=== PATIENT | female | born 1955 | race Two or more races ===

== ENCOUNTER 2017-04-01 01:04 | Emergency (ER) | payer MEDICAID ==
[~2017-04-01] VITALS: Ht 167.6 cm; Wt 74.8 kg
--- NOTE | 2017-04-01 01:32 | NUR ---
PT BIB RA 81 WITH A C/O ELEVATED BP AND ANXIETY. PT TOOK TWO 0.1MG CLONIDINE PO 2 HRS AGO. PT WAS HYPERTENSIVE IN THE FIELD. PT AMBULATED TO THE [facility] AND WAS PLACED ON THE MONITOR AND CONTINUOUS PULSE OX. VSS.
[2017-04-01 01:59] VITALS: BP 130/80
== END 2017-04-01 01:50 | disposition home or self-care (01) ==
LOC: ER 01:07
DX: F41.9 Anxiety disorder, unspecified (principal); I10 Essential (primary) hypertension
CPT/HCPCS: A4606; Z7610

== ENCOUNTER 2017-09-21 19:55 | Emergency (ER) | payer MEDICAID ==
[~2017-09-21] VITALS: Ht 165.1 cm; Wt 72.6 kg
[2017-09-21 20:03] VITALS: BP 179/99
--- NOTE | 2017-09-21 20:44 | NUR ---
PT BACK FROM CT
== END 2017-09-21 21:42 | disposition home or self-care (01) ==
LOC: ER 19:56
DX: R51 Headache (principal); I10 Essential (primary) hypertension; F41.9 Anxiety disorder, unspecified; Z60.2 Problems related to living alone
CPT/HCPCS: 70450-TC; A4606; Z7610

== ENCOUNTER 2017-12-21 10:50 | Emergency (ER) | payer MEDICAID ==
[~2017-12-21] VITALS: Ht 167.6 cm; Wt 73.0 kg
[2017-12-21 11:09] VITALS: BP 146/83
--- NOTE | 2017-12-21 12:13 | NUR ---
Patient discharged to home in stable condition. Written and verbal after care instructions given. Patient verbalizes understanding of instruction. VSS
== END 2017-12-21 12:12 | disposition home or self-care (01) ==
LOC: ER 10:53
DX: S52.592A Other fractures of lower end of left radius, initial encounter for closed fracture (principal); I10 Essential (primary) hypertension; F41.9 Anxiety disorder, unspecified; F17.200 Nicotine dependence, unspecified, uncomplicated; W18.30XA Fall on same level, unspecified, initial encounter; Y93.01 Activity, walking, marching and hiking; Y92.480 Sidewalk as the place of occurrence of the external cause; Y99.8 Other external cause status
CPT/HCPCS: 29125; 73110; 99284; A4606; Z7610

== ENCOUNTER 2018-09-04 14:23 | Emergency (ER) | payer MEDICAID ==
[~2018-09-04] VITALS: Ht 170.2 cm; Wt 77.6 kg
--- NOTE | 2018-09-04 14:28 | NUR ---
BIBRA FROM HOME FOR PALPITATIONS GIVEN ADENOSINE VISUAL MANAGER, CONVERTED TO SINUS TACH, PT AAOX4, PT ON MONITOR, VSS, NAD NOTED, PENDING MD HAWKINS
[2018-09-04] MEDS ORDERED: METOPROLOL TARTRATE INJ 5 MG/5 ML AMPUL ONE (14:44)
[2018-09-04 14:45] LABS: BASOPHILS # (AUTO) 0.1 /CMM (0.0-0.2); HEMATOCRIT 37 % (33-45); HEMOGLOBIN 12.2 g/dL (11.5-14.8); LYMPHOCYTES # (AUTO) 2.1 /CMM (0.8-4.8); LYMPHOCYTES % (AUTO) 36.3 % (20.0-44.0); MEAN CORPUSCULAR HGB CONC 33 g/dl (31.0-36.0); MEAN CORPUSCULAR VOLUME 91 fL (82-100); MONOCYTES # (AUTO) 0.4 /CMM (0.1-1.30); MONOCYTES % (AUTO) 6.5 % (2.0-12.0); NEUTROPHILS # (AUTO) 3.2 /CMM (1.8-8.9); NEUTROPHILS % (AUTO) 55.2 % (43.0-81.0); PLATELET COUNT (AUTO) 238 /CMM (150-450); RED BLOOD CELL COUNT(AUTO) 4.04 MIL/uL (4.0-5.2); WHITE BLOOD COUNT (AUTO) 5.8 K/uL (4.3-11.0)
[2018-09-04 14:53] LABS: CALCIUM, SERUM 7.7 mg/dL (8.5-10.1); CARBON DIOXIDE 26 mmol/L (21-32); CHLORIDE 111 mmol/L (98-107); CREATININE 0.6 mg/dL (0.6-1.3); GLUCOSE 102 mg/dL (74-106); POTASSIUM 2.8 mmol/L (3.5-5.1); SODIUM SERUM 145 mmol/L (136-145); UREA NITROGEN, BLOOD 23 mg/dL (7-18)
[2018-09-04] MEDS ORDERED: METOPROLOL TARTRATE INJ 5 MG/5 ML AMPUL IVP ONE (15:00)
[2018-09-04] MEDS ORDERED: HYDR-4076 PO (15:14)
[2018-09-04] MEDS ORDERED: MEMA5TAB15 PO (15:14)
[2018-09-04] MEDS ORDERED: AMLO10TA7 PO (15:14)
[2018-09-04] MEDS ORDERED: ATOR20TA PO (15:14)
[2018-09-04] MEDS ORDERED: ERGO500014 PO (15:14)
[2018-09-04] MEDS ORDERED: SPIR25TA6 PO (15:14)
[2018-09-04] MEDS ORDERED: LOSA1TAB39 PO (15:14)
[2018-09-04] MEDS ORDERED: SERT50TA PO (15:14)
[2018-09-04] MEDS ORDERED: ASPI-605 PO (15:14)
[2018-09-04] MEDS ORDERED: MELO-107 PO (15:14)
[2018-09-04] MEDS ORDERED: CLON0.2T PO (15:14)
[2018-09-04] MEDS ORDERED: CARV12.52 PO (15:14)
[2018-09-04] MEDS ORDERED: CALC500T52 PO (15:14)
[2018-09-04] MEDS ORDERED: FENO145T35 PO (15:14)
[2018-09-04] MEDS ORDERED: SUMA100T16 PO (15:14)
[2018-09-04] MEDS ORDERED: CLOB15CR4 TP (15:14)
[2018-09-04] MEDS ORDERED: MECL-102 PO (15:14)
[2018-09-04] MEDS ORDERED: GABA-534 PO (15:14)
[2018-09-04 16:57] VITALS: BP 118/65
[2018-09-04] MEDS ORDERED: POTASSIUM CHLORIDE 20 MEQ TAB.PRT.SR PO ONE ×2 (17:00→17:03)
--- NOTE | 2018-09-04 17:44 | NUR ---
Patient discharged to home in stable condition. Written and verbal after care instructions given. Patient verbalizes understanding of instruction. IV removed. Catheter intact and site benign. Pressure and 4x4 applied to site. No bleeding noted.
== END 2018-09-04 18:04 | disposition home or self-care (01) ==
LOC: ER 14:28
DX: I47.1 Supraventricular tachycardia (principal); I10 Essential (primary) hypertension; F41.9 Anxiety disorder, unspecified; F17.200 Nicotine dependence, unspecified, uncomplicated; Z79.82 Long term (current) use of aspirin
CPT/HCPCS: 36415; 71045; 80048; 84484; 85025; 93005 ×2; 96374; 99284; J3490

== ENCOUNTER 2019-09-16 14:47 | Inpatient (IN) | payer MEDICAID ==
[~2019-09-16] VITALS: Ht 162.6 cm; Wt 76.2 kg
[~2019-09-16 14:47] MED LIST: AMLO10TA7 PO; ASPI-605 PO; ATOR20TA PO; CALC500T52 PO; CARV12.52 PO; CLOB15CR4 TP; CLON0.2T PO; ERGO500014 PO; FENO145T21 PO; GABA-534 PO; HYDR-4076 PO; LOSA1TAB39 PO; MECL-159 PO; MELO-107 PO; MEMA5TAB42 PO; SERT50TA PO; SPIR25TA6 PO; SUMA100T16 PO
--- NOTE | 2019-09-16 14:47 | NUR ---
PT BIBRA88 FRM HOME, PER EMS REPORT RAPID HEART RATE. VALSALVA MANUJAILYN, PT IS AAOX4 URUGUAYAN SPEAKING ONLY, NOT IN RESPIRATORY DISTRESS, HOOKED TO MACHINE MAINTENANCE, KEPT RESTED AND COMFORTABLE, WILL CONTINUE TO MONITOR.
--- NOTE | 2019-09-16 14:50 | NUR ---
SEEN AND EXAMINED BY .
--- NOTE | 2019-09-16 14:55 | NUR ---
BLOOD DRAWN AND SENT TO LAB.
[2019-09-16] MEDS ORDERED: METOPROLOL TARTRATE 25 MG TABLET PO ONE (15:00)
[2019-09-16] MEDS ORDERED: IV NS 0.9% 1,000 ML BAG IV ONE (15:00)
[2019-09-16] MEDS ORDERED: METOPROLOL TARTRATE 50 MG TABLET ONE (15:02)
[2019-09-16 15:05] LABS: BASOPHILS # (AUTO) 0.1 /CMM (0.0-0.2); BASOPHILS % (AUTO) 0.9 % (0.0-2.0); EOSINOPHILS % (AUTO) 0.7 % (0.0-6.0); HEMATOCRIT 40 % (33-45); HEMOGLOBIN 13.2 g/dL (11.5-14.8); LYMPHOCYTES # (AUTO) 2.5 /CMM (0.8-4.8); LYMPHOCYTES % (AUTO) 44.2 % (20.0-44.0); MEAN CORPUSCULAR HGB CONC 33 g/dl (31.0-36.0); MEAN CORPUSCULAR VOLUME 91 fL (82-100); MONOCYTES # (AUTO) 0.4 /CMM (0.1-1.30); NEUTROPHILS # (AUTO) 2.6 /CMM (1.8-8.9); NEUTROPHILS % (AUTO) 47.2 % (43.0-81.0); PLATELET COUNT (AUTO) 234 /CMM (150-450); RED BLOOD CELL COUNT(AUTO) 4.37 MIL/uL (4.0-5.2); WHITE BLOOD COUNT (AUTO) 5.6 K/uL (4.3-11.0)
--- NOTE | 2019-09-16 15:18 | NUR ---
BULK TANK DRIVER AT BEDSIDE FOR XRAY.
[2019-09-16 15:23] LABS: CALCIUM, SERUM 8.8 mg/dL (8.5-10.1); POTASSIUM 3.9 mmol/L (3.5-5.1)
[2019-09-16] MEDS ORDERED: ENOXAPARIN SODIUM 80 MG/0.8 ML DISP.SYRIN SQ ONE ×2 (18:48→19:00)
--- NOTE | 2019-09-16 19:16 | NUR ---
REPORT GIVEN TO VIBHA ARENAS FOR HUAN.
--- NOTE | 2019-09-16 20:21 | NUR ---
SPOKE FELISHA EDMONDSON DIE TRIPPER. PT CAPITATED TO [facility]. PENDING MD TO MD/POSSIBLE TRANSFER
--- NOTE | 2019-09-16 21:10 | NUR ---
DR. WILLAMS ON THE PHONE WITH FELISHA WATSON
[2019-09-16] MEDS ORDERED: ZOLPIDEM TARTRATE 5 MG TABLET PO PRN (22:00)
[2019-09-16] MEDS ORDERED: ACETAMINOPHEN 325 MG TABLET PO PRN (22:00)
[2019-09-16] MEDS ORDERED: CLONIDINE HCL 0.1 MG TABLET PO PRN (22:00)
[2019-09-16] MEDS ORDERED: METOPROLOL SUCCINATE 50 MG TAB.SR.24H PO SCH (22:00)
[2019-09-16] MEDS ORDERED: ATORVASTATIN 10 MG TABLET PO SCH (22:00)
--- NOTE | 2019-09-16 22:10 | NUR ---
report given to Miguelina Pratt
--- NOTE | 2019-09-16 22:30 | NUR ---
DIAGRAMMER AND SEAMER NOTES PATIENT ARRIVED VIA GURNEY AT 2230. PATIENT ALERT AND ORIENTED X 4, MAINLY ZIMBABWEAN SPEAKING. PATIENT ON ROOM AIR, WITH NO SIGNS OF RESPIRATORY DISTRESS AT THIS TIME, WITH EVEN NON-LABORED BREATHING. PATIENT ON HOME HELP AIDE, 60'S. PATIENT SKIN INTACT, WARM TO TOUCH AND DRY. PATIENT IV ACCESS INTACT AND PATENT ON LEFT AC, 18 GAUGE. PROVIDED COMFORT MEASURES TO PATIENT, STATES AND PRESENTS NO SIGNS OF PAIN OR DISCOMFORT AT THIS TIME. SAFETY PRECAUTIONS IN PLACE WITH BED LOCKED, BILATERAL SIDE RAILS UP, AND CALL LIGHT WITHIN EASY REACH OF THE PATIENT. WILL CONTINUE TO MONITOR PATIENT.
--- NOTE | 2019-09-16 22:36 | NUR ---
PT transfered per acls protocol
[2019-09-17] VITALS: BP 139/74
[2019-09-17 04:00] VITALS: BP 124/78
--- NOTE | 2019-09-17 06:38 | NUR ---
ENVIRONMENTAL CONSULTANT NOTES PATIENT IN BED RESTING. ALERT AND ORIENTED X 4. PATIENT ON ROOM AIR WITH NO SIGNS OF RESPIRATORY DISTRESS AT THIS TIME, WITH EVEN NON-LABORED BREATHING. ON MANAGER OF RECRUITING, SINUS BRADYCARDIA 53. IV ACCESS REMAINS INTACT AND PATENT. PATIENT DENIES ANY PAIN OR DISCOMFORT AT THIS TIME. SKIN KEPT CLEAN AND DRY. MET ALL OF PATIENT'S NEEDS. SAFETY PRECAUTIONS IN PLACE WITH BED LOCKED, BED IN THE LOWEST POSITION, BILATERAL SIDE RAILS UP, AND CALL LIGHT WITHIN EASY REACH OF PATIENT. WILL ENDORSE PLAN OF CARE TO UPCOMING DAYSHIFT NURSE.
[2019-09-17 06:47] LABS: ALBUMIN 3.4 g/dL (3.4-5.0); BILIRUBIN,TOTAL 0.5 mg/dL (0.2-1.0); CALCIUM, SERUM 8.7 mg/dL (8.5-10.1); CREATININE 0.7 mg/dL (0.6-1.3); POTASSIUM 3.7 mmol/L (3.5-5.1); TOTAL PROTEIN, SERUM 6.5 g/dL (6.4-8.2)
[2019-09-17 06:58] LABS: THYROID STIMULATING HORMONE 3.018 uIU/mL (0.358-3.74)
--- NOTE | 2019-09-17 07:00 | NUR ---
SUPERVISOR MAIL CARRIERS OPENING NOTES RECEIVED PT IN BED RESTING AT THIS TIME. PT EASILY AROUSED. AO X 4. PT ON RA. NO SOB NOTED. RESPIRATIONS EVEN AND UNLABORED. NO S/S OF ANY ACUTE DISTRESS AT THIS TIME, PT ON EXTERNAL TELEMETRY FACILITY SUPERVISOR, SR 54. IV ACCESS ON LAC, INTACT AND PATENT. PT DENIES PAIN AT THIS TIME. SKIN KEPT CLEAN AND DRY. SAFETY PRECAUTIONS IN PLACE. BED IN LOWEST LOCKED POSITION, SIDE RAILS UP, BED ALARM ON, CALL LIGHT WITHIN REACH. WILL CONTINUE TO MONITOR
[2019-09-17 08:13] VITALS: BP 142/77
[2019-09-17 08:18] VITALS: BP 142/77
[2019-09-17] MEDS ORDERED: LOSARTAN POTASSIUM 25 MG TABLET PO SCH (09:00)
[2019-09-17] MEDS ORDERED: LOSARTAN/HCTZ 50-12.5MG/ 1 EA TABLET PO SCH (09:00)
[2019-09-17] MEDS ORDERED: ASPIRIN EC 81 MG TABLET.DR PO SCH (09:00)
[2019-09-17] MEDS ORDERED: DILTIAZEM HCL CD 240 MG PO SCH (09:00)
[2019-09-17] MEDS ORDERED: IV NS 0.9% 250 ML IV ONE (11:03)
[2019-09-17] MEDS ORDERED: IOHEXOL-350 100 ML VIAL IV ONE (11:03)
[2019-09-17] MEDS ORDERED: METOPROLOL TARTRATE INJ 5 MG/5 ML AMPUL IVP PRN (11:30)
[2019-09-17] MEDS ORDERED: NITROGLYCERIN 0.4 MG/TAB BOTTLE SL ONE (11:30)
--- NOTE | 2019-09-17 11:34 | NUR ---
PT TRANSPORTED FOR CT ANGIOGRAM HEART WITH 3D IMAGE BY WHEEL CHAIR AT THIS TIME
[2019-09-17] MEDS ORDERED: METOPROLOL TARTRATE INJ 5 MG/5 ML AMPUL ONE (11:38)
[2019-09-17] MEDS ORDERED: NITROGLYCERIN 0.4 MG/TAB BOTTLE ONE (11:38)
[2019-09-17 11:47] VITALS: BP 135/73
--- NOTE | 2019-09-17 12:05 | NUR ---
PT BACK IN ROOM AT THIS TIME FROM CT ANGIO
--- NOTE | 2019-09-17 13:54 | NUR ---
MS BEAN VINER NOTES PT DISCHARGED TO HOME AT THIS TIME IN STABLE CONDITION. V/S STABLE. NO SOB NOTED . NO S/S OF ANY APPARENT DISTRESS. RESPIRATIONS ARE EVEN AND UNLABORED. NO C/O PAIN AT THIS TIME. IV ACCESS REMOVED AND SITE DRESSED WITH NO REDNESS, NO BLEEDING, NO SWELLING, NO INFILTRATION NOTED. SKIN INTACT, CLEAN AND DRY. ALL NEEDS ATTENDED TO ANTICIPATED PER ORDER. ALL BELONGINGS ACCOUNTED FOR. ALL DISCHARGE INSTRUCTIONS AND TEACHINGS PROVIDED FOR AND PT VERBALIZED UNDERSTANDING. PT AMBULATORY AND ACCOMPANIED TO LOBBY BY NURSE. PT BEING PICKED UP BY HER DAUGHTER NURIA IN A PRIVATE CAR.
== END 2019-09-17 14:00 | disposition home or self-care (01) | DRG 201 ==
LOC: ER 14:50 → TELE 22:07 → MED 09-17 08:42
PROVIDERS: ADMIT Internal Medicine; ATTEND Internal Medicine
DX: I47.1 Supraventricular tachycardia (principal); E78.5 Hyperlipidemia, unspecified; I10 Essential (primary) hypertension; R79.89 Other specified abnormal findings of blood chemistry; F17.210 Nicotine dependence, cigarettes, uncomplicated; F41.9 Anxiety disorder, unspecified; Z79.82 Long term (current) use of aspirin
CPT/HCPCS: 36415; 71045-TC; 75574; 80048-TC; 80053-TC; 80061-TC; 84443-TC; 84484-TC; 85025-TC; 87081-TC; 93307-TC; G0378; J1650; J3490; J7030; J7050; Q9967

== ENCOUNTER 2020-03-03 06:52 | Emergency (ER) | payer MEDICAID ==
[~2020-03-03] VITALS: Ht 165.1 cm; Wt 67.1 kg
[~2020-03-03 06:52] MED LIST changes: -AMLO10TA7 PO; -ATOR20TA PO; -CALC500T52 PO; -CLOB15CR4 TP; -ERGO500014 PO; -FENO145T21 PO; -GABA-534 PO; -HYDR-4076 PO; -MECL-159 PO; -MELO-107 PO; -MEMA5TAB42 PO; -SERT50TA PO; -SPIR25TA6 PO; -SUMA100T16 PO
--- NOTE | 2020-03-03 07:05 | NUR ---
PT CAME TO THE ER C/O FEVER X 4 DAYS. PT CURRENTLY ON BACTRIM FOR UTI. PT AAOX4, RESPIRATIONS EVEN AND UNLABORED ON RA W/ AND NOTED. PT CONNECTED TO THE MONITOR AND POX
[2020-03-03] MEDS ORDERED: PIPERACILLIN /TAZOBACTAM 3.375 G VIAL IV ONE (07:11)
[2020-03-03] MEDS ORDERED: KETOROLAC TROMETHAMINE 15 MG/ML VIAL ONE (07:11)
[2020-03-03] MEDS ORDERED: ACETAMINOPHEN ES 500 MG TABLET ONE (07:11)
[2020-03-03] MEDS: ACETAMINOPHEN ES 500 MG TABLET PO ONE (07:15)
[2020-03-03] MEDS: IV NS 0.9% 1,000 ML BAG IV ONE (07:15)
[2020-03-03] MEDS: PIPERACILLIN /TAZOBACTAM 3.375 G in IV D5W 50 ML IV ONE (07:15)
[2020-03-03] MEDS: KETOROLAC TROMETHAMINE INJ 30 MG/ML VIAL IV ONE (07:15)
--- NOTE | 2020-03-03 07:19 | NUR ---
COVID SWAB COLLECTED AND SENT TO LAB
--- NOTE | 2020-03-03 07:19 | NUR ---
URINE COLLECTED AND SENT TO LAB
[2020-03-03 07:39] LABS: BASOPHILS % (AUTO) 0.8 % (0.0-2.0); EOSINOPHILS % (AUTO) 1.8 % (0.0-6.0); HEMATOCRIT 42 % (33-45); HEMOGLOBIN 13.6 g/dL (11.5-14.8); LYMPHOCYTES # (AUTO) 0.6 /CMM (0.8-4.8); LYMPHOCYTES % (AUTO) 18.7 % (20.0-44.0); MEAN CORPUSCULAR HGB CONC 33 g/dl (31.0-36.0); MEAN CORPUSCULAR VOLUME 91 fL (82-100); MONOCYTES # (AUTO) 0.2 /CMM (0.1-1.30); MONOCYTES % (AUTO) 6.7 % (2.0-12.0); NEUTROPHILS # (AUTO) 2.4 /CMM (1.8-8.9); PLATELET COUNT (AUTO) 154 /CMM (150-450); RED BLOOD CELL COUNT(AUTO) 4.61 MIL/uL (4.0-5.2); WHITE BLOOD COUNT (AUTO) 3.3 K/uL (4.3-11.0)
[2020-03-03 07:46] LABS: APPEARANCE,URINE CLEAR (CLEAR); BILIRUBIN,URINE NEGATIVE (NEGATIVE); BLOOD, URINE LARGE Ery/uL (NEGATIVE); COLOR,URINE YELLOW (YELLOW); KETONES,URINE NEGATIVE (NEGATIVE); LEUKOCYTE ESTERASE ,URINE NEGATIVE (NEGATIVE); NITRITE, URINE NEGATIVE (NEGATIVE); PROTEIN,URINE 30 mg/dl (NEGATIVE); UGLUCOSE NEGATIVE (NEGATIVE); UROBILINOGEN,URINE 0.2 EU/dL (0.2)
--- NOTE | 2020-03-03 08:01 | NUR ---
COVID RESULT =NEGATIVE
[2020-03-03 08:20] LABS: ALBUMIN 3.7 g/dL (3.4-5.0); BILIRUBIN,DIRECT 0.1 mg/dL (0.0-0.2); BILIRUBIN,TOTAL 0.3 mg/dL (0.2-1.0); CREATININE 1.1 mg/dL (0.6-1.3); POTASSIUM 4.4 mmol/L (3.5-5.1); TOTAL PROTEIN, SERUM 7.5 g/dL (6.4-8.2)
[2020-03-03 08:52] LABS: BACTERIA,URINE Rare /HPF (None Seen); SQUAMOUS EPITHELIAL CELL,UR Few /HPF (None Seen); WBC,URINE 0-2 /HPF (0-3)
[2020-03-03] MEDS ORDERED: CLON0.1T PO (08:58)
--- NOTE | 2020-03-03 09:01 | NUR ---
MOVE SHEET SUBMITTED
--- NOTE | 2020-03-03 09:20 | NUR ---
CM CALLED ASKING ABOUT CLINICALS
--- NOTE | 2020-03-03 11:35 | NUR ---
SPOKE WITH FELISHA DELUNA IT NETWORK ENGINEER, PT IS ACCEPTED AT [facility] UNDER THE CARE FOR DR. MORROW. WILL CALL BACK FOR ROOM ASSIGNMENT AND NUMBER FOR NURSE TO NURSE REPORT
--- NOTE | 2020-03-03 12:12 | NUR ---
CALL FROM RYLEE WITH TX INFO: GOING TO [facility] ROOM 200 REPORT TO GEMINI RN AT [phone]
--- NOTE | 2020-03-03 12:25 | NUR ---
REPORT GIVEN TO GEMINI RN AT [facility]. PT WILL BE GOING TO 200
--- NOTE | 2020-03-03 12:30 | NUR ---
TEMP RECHECKED NOTED AT 98.2
--- NOTE | 2020-03-03 12:34 | NUR ---
ETA FOR APA=90 MINUTES PER ROWLY
--- NOTE | 2020-03-03 13:28 | NUR ---
SPOKE WITH PTS DAUGHTER EL PACHECO WAS TRANSLATING FOR HER MOM. ACCORDING TO THEM PT REALLY WANTS TO GO HOME AND IS REFUSING TO GET ADMITTED TO THE HOPITAL. ACCORDING TO THEM PT WILL SIGN AMA. PT IS AOX4. AND WANTS TO GO HOME AND THEY SAID PT WILL SEE HER MD TOMORROW. EXPLAINED RISK AND BENEFITS.
[2020-03-03 13:30] VITALS: BP 132/77
== END 2020-03-03 13:50 | disposition left against medical advice (07) ==
LOC: ER 06:52
DX: R50.9 Fever, unspecified (principal); D72.819 Decreased white blood cell count, unspecified; I44.4 Left anterior fascicular block; R00.0 Tachycardia, unspecified; D72.820 Lymphocytosis (symptomatic); N39.0 Urinary tract infection, site not specified; I10 Essential (primary) hypertension; E78.00 Pure hypercholesterolemia, unspecified; Z79.899 Other long term (current) drug therapy; F17.200 Nicotine dependence, unspecified, uncomplicated; Z20.828 Contact with and (suspected) exposure to other viral communicable diseases
CPT/HCPCS: 36415; 71045; 74176; 80048; 80076; 81001; 83605; 83690; 85025; 87040 ×2; 87081; 87086; 87426; 87804; 93005; 96365; 96375; 99285; C9803; J1885; J2543 ×2; J7060; 81000-TC

== ENCOUNTER 2020-11-06 07:11 | Emergency (ER) | payer MEDICAID ==
[~2020-11-06] VITALS: Ht 162.6 cm; Wt 77.1 kg
[~2020-11-06 07:11] MED LIST changes: +CLON0.1T PO; -CLON0.2T PO
--- NOTE | 2020-11-06 07:30 | NUR ---
RECTAL PAIN, CONSTIPATION X 3 DAYS. PATIENT A/OX4, BREATHING EVEN AND UNLABORED, NO SOB NOTED. UNABLE TO SIT STILL.
--- NOTE | 2020-11-06 07:35 | NUR ---
DR. ORDAZ AT BEDSIDE
[2020-11-06] MEDS ORDERED: HYDROCORTISONE ACETATE 25 MG/SUPP.RECT SUPP.RECT RC ONE ×2 (08:00)
--- NOTE | 2020-11-06 08:03 | NUR ---
PT C/O HEMORRHOID PAIN, RECEIVED ORDER TO GIVE ANUSOL SUPP.
[2020-11-06] MEDS ORDERED: HYDR28.316 RC (08:09)
[2020-11-06] MEDS ORDERED: DOCU-141 PO (08:09)
[2020-11-06] MEDS ORDERED: NA PHOS,M-B/NA PHOS,DI-BA 1 EA ENEMA RC ONE ×2 (08:13→08:30)
--- NOTE | 2020-11-06 08:17 | NUR ---
PATIENT REFUSED THE ENEMA, PATIENT STS SHE HAD A BM ALREADY.
--- NOTE | 2020-11-06 08:20 | NUR ---
Patient sts she feels better after having a BM. Rx provided. Pain improved. Patient discharged to home in stable condition. Written and verbal after care instructions given. Patient verbalizes understanding of instruction.
[2020-11-06 08:21] VITALS: BP 168/95
== END 2020-11-06 08:21 | disposition home or self-care (01) ==
LOC: ER 07:11
DX: K59.00 Constipation, unspecified (principal); I10 Essential (primary) hypertension; Z79.899 Other long term (current) drug therapy; Z79.82 Long term (current) use of aspirin
CPT/HCPCS: 74018

== ENCOUNTER 2020-11-15 00:13 | Emergency (ER) | payer MEDICAID ==
[~2020-11-15] VITALS: Ht 167.6 cm; Wt 76.2 kg
[~2020-11-15 00:13] MED LIST changes: +DOCU-141 PO; +HYDR28.316 RC
[2020-11-15 00:20] VITALS: BP 144/91
[2020-11-15] MEDS ORDERED: HYDR25SU33 RC (00:35)
[2020-11-15] MEDS ORDERED: HYDROCORTISONE ACETATE 25 MG/SUPP.RECT SUPP.RECT RC ONE ×2 (00:37→01:00)
== END 2020-11-15 00:48 | disposition home or self-care (01) ==
LOC: ER 00:17
DX: K64.4 Residual hemorrhoidal skin tags (principal); K59.00 Constipation, unspecified; I10 Essential (primary) hypertension; F17.200 Nicotine dependence, unspecified, uncomplicated; Z79.899 Other long term (current) drug therapy

== ENCOUNTER 2021-10-13 15:04 | Emergency (ER) | payer MEDICAID ==
[~2021-10-13] VITALS: Ht 165.1 cm; Wt 67.1 kg
[~2021-10-13 15:04] MED LIST changes: +HYDR25SU33 RC
[2021-10-13 15:26] VITALS: BP 120/82
--- NOTE | 2021-10-13 15:55 | NUR ---
BIBSELF C/O HEMORRHOID FOR 2DAYS. AMBULATORY, AAOX4
--- NOTE | 2021-10-13 15:57 | NUR ---
SEEN AND EVALUATED BY DR PINTO
[2021-10-13] MEDS ORDERED: HYDR28.316 RC (16:45)
[2021-10-13] MEDS ORDERED: HYDR25SU33 RC (16:45)
--- NOTE | 2021-10-13 16:59 | NUR ---
Patient discharged to home in stable condition. Written and verbal after care instructions given. Patient verbalizes understanding of instruction.
== END 2021-10-13 17:00 | disposition home or self-care (01) ==
LOC: ER 15:14
DX: K64.4 Residual hemorrhoidal skin tags (principal); I10 Essential (primary) hypertension; Z79.899 Other long term (current) drug therapy